=== PATIENT | male | born 1965 | race Caucasian/White ===

== ENCOUNTER 2021-03-03 02:59 | Emergency (ER) | payer OTHER ==
[2021-03-03 03:04] VITALS: BP 117/70
[2021-03-03] MEDS ORDERED: ACETAMINOPHEN 325 MG TAB PO ONE (09:10)
== END 2021-03-03 09:42 | disposition home or self-care (01) ==
LOC: M ED 02:59
DX: S02.2XXA Fracture of nasal bones, initial encounter for closed fracture (principal); S00.83XA Contusion of other part of head, initial encounter; W22.8XXA Striking against or struck by other objects, initial encounter; Y92.89 Other specified places as the place of occurrence of the external cause; Z59.00 Homelessness unspecified; F17.210 Nicotine dependence, cigarettes, uncomplicated

== ENCOUNTER 2021-10-20 19:59 | Emergency (ER) | payer BC, MEDICAID, OTHER ==
[~2021-10-20] VITALS: Ht 179.1 cm; Wt 76.9 kg
[2021-10-21 07:39] VITALS: BP 136/82
[2021-10-21] MEDS ORDERED: AMOX875T PO (07:39)
== END 2021-10-21 07:50 | disposition home or self-care (01) ==
LOC: M ED 19:59
DX: S03.2XXA Dislocation of tooth, initial encounter (principal); W22.8XXA Striking against or struck by other objects, initial encounter; Y92.410 Unspecified street and highway as the place of occurrence of the external cause; F17.200 Nicotine dependence, unspecified, uncomplicated

== ENCOUNTER → 2022-06-27 | Outpatient (CLI) | payer OTHER ==
[~2022-06-27] MED LIST: AMOX875T PO
[2022-06-27 09:48] LABS: BASO # 0.1 10^3/uL (0.0-0.2); BASO % 0.7 % (0.0-1.0); EOS # 0.3 10^3/uL (0.0-0.5); EOS % 2.8 % (0.0-3.0); HEMATOCRIT 43.8 % (42.0-52.0); HEMOGLOBIN 14.6 g/dl (13.5-17.5); LYMPH # 2.7 10^3/uL (1.5-5.0); LYMPH % 24.4 % (24.0-44.0); MEAN CORPUSCULAR HEMOGLOBIN 33.7 pg (27.0-33.0); MEAN CORPUSCULAR HGB CONC 33.3 g/dl (32.0-36.5); MEAN CORPUSCULAR VOLUME 101.2 fl (80.0-96.0); MONO # 1.2 10^3/uL (0.0-0.8); MONO % 10.8 % (2.0-8.0); NEUTROPHILS # 6.8 10^3/uL (1.5-8.5); PLATELET COUNT, AUTOMATED 266 10^3/uL (150-450); RED BLOOD COUNT 4.33 10^6/uL (4.30-6.10); WHITE BLOOD COUNT 11.1 10^3/uL (4.0-10.0)
[2022-06-27 10:20] LABS: ALBUMIN 3.4 G/DL (3.2-5.2); BILIRUBIN,DIRECT 0.1 MG/DL (<0.4); BILIRUBIN,TOTAL 0.5 MG/DL (0.3-1.2); TOTAL PROTEIN 6.9 G/DL (5.7-8.2)
== END ==
LOC: M LAB 09:22
DX: F10.20 Alcohol dependence, uncomplicated (principal)

== ENCOUNTER 2022-08-14 20:16 | Emergency (ER) | payer OTHER ==
[2022-08-14] MEDS ORDERED: LORazepam 2 MG/ML 1ML VIAL IV STA (20:40)
[2022-08-14] MEDS ORDERED: LORazepam 2 MG/ML 1ML VIAL As Ordered ONE (20:42)
[2022-08-14 20:48] LABS: BASO # 0.1 10^3/uL (0.0-0.2); BASO % 0.8 % (0.0-1.0); EOS # 0.2 10^3/uL (0.0-0.5); EOS % 2.1 % (0.0-3.0); HEMATOCRIT 47.3 % (42.0-52.0); HEMOGLOBIN 15.4 g/dl (13.5-17.5); LYMPH # 3.8 10^3/uL (1.5-5.0); MEAN CORPUSCULAR HEMOGLOBIN 33.6 pg (27.0-33.0); MEAN CORPUSCULAR HGB CONC 32.6 g/dl (32.0-36.5); MEAN CORPUSCULAR VOLUME 103.3 fl (80.0-96.0); MONO # 1.1 10^3/uL (0.0-0.8); MONO % 10.2 % (2.0-8.0); NEUTROPHILS # 5.8 10^3/uL (1.5-8.5); NEUTROPHILS % 52.5 % (36.0-66.0); PLATELET COUNT, AUTOMATED 271 10^3/uL (150-450); RED BLOOD COUNT 4.58 10^6/uL (4.30-6.10)
[2022-08-14 21:19] LABS: AMPHETAMINES LEVEL URINE NEGATIVE (NEGATIVE); BARBITURATES URINE NEGATIVE (NEGATIVE); BENZODIAZEPINES URINE NEGATIVE (NEGATIVE); CANNABINOIDS URINE NEGATIVE (NEGATIVE); COCAINE METABOLITE URINE NEGATIVE (NEGATIVE); METHADONE URINE NEGATIVE (NEGATIVE); OPIATES URINE NEGATIVE (NEGATIVE); PHENCYCLIDINE URINE NEGATIVE (NEGATIVE)
[2022-08-14 21:20] LABS: RSV AMPLIFICATION NEGATIVE (NEGATIVE)
[2022-08-14 21:21] LABS: CK-MB VALUE MASS 1.1 NG/ML (<3.6)
[2022-08-14 21:22] LABS: ACETAMINOPHEN LEVEL < 2.0 UG/ML (10.0-20.0)
[2022-08-14 21:23] LABS: CPK CREATINE PHOSPHOKINASE 134 U/L (46-171); MB/CK RELATIVE INDEX 0.82 (< OR =4); SALICYLATE LEVEL < 3.0 MG/DL (<30)
[2022-08-14 21:42] LABS: ALBUMIN 4.3 G/DL (3.2-5.2); ALKALINE PHOSPHATASE 75 U/L (46-116); ALT/SGPT 16 U/L (7.0-40); AST/SGOT 15 U/L (<34); BILIRUBIN,DIRECT < 0.1 MG/DL (<0.4); BILIRUBIN,TOTAL 0.3 MG/DL (0.3-1.2); BLOOD UREA NITROGEN 10 MG/DL (9-23); CARBON DIOXIDE LEVEL 27 MMOL/L (20-31); CHLORIDE LEVEL 113 MMOL/L (98-107); CREATININE FOR GFR 0.61 MG/DL (0.70-1.30); ETHYL ALCOHOL (ETHANOL) 0.433 % (0.000-0.010); GLOMERULAR FILTRATION RATE > 60.0 (>56); GLUCOSE, FASTING 92 MG/DL (60-100); POTASSIUM SERUM 4.4 MMOL/L (3.5-5.1); SODIUM LEVEL 149 MMOL/L (136-145); TOTAL PROTEIN 7.9 G/DL (5.7-8.2)
[2022-08-15 01:30] VITALS: TEMP 98.4
[2022-08-15 05:30] VITALS: BP 128/70; O2SAT 97
== END 2022-08-15 06:43 | disposition home or self-care (01) ==
LOC: M ED 20:16
DX: F10.129 Alcohol abuse with intoxication, unspecified (principal)
CPT/HCPCS: 70450; 71045; 72125; 73560; 80048; 80076; 80143; 80307; 81001; 82077; 82550; 82553; 83605; 85025; 87631; 93005; 93041; 94760; 96374; 99285; J2060

== ENCOUNTER 2022-09-26 12:00 | Emergency (ER) | payer OTHER ==
[~2022-09-26] VITALS: Ht 177.8 cm; Wt 82.4 kg
[2022-09-26] MEDS ORDERED: NEUR300C PO (12:40)
[2022-09-26 13:13] VITALS: TEMP 97.8
[2022-09-26] MEDS ORDERED: NS 1,000 ML IV ONE (16:50)
[2022-09-26] MEDS ORDERED: ISOVUE-370 76% 100ML VIAL As Ordered ONE (17:50)
[2022-09-26 17:54] LABS: BASO # 0.1 10^3/uL (0.0-0.2); BASO % 0.7 % (0.0-1.0); EOS # 0.2 10^3/uL (0.0-0.5); EOS % 2.3 % (0.0-3.0); HEMATOCRIT 43.5 % (42.0-52.0); HEMOGLOBIN 14.5 g/dl (13.5-17.5); LYMPH # 2.6 10^3/uL (1.5-5.0); LYMPH % 34.4 % (24.0-44.0); MEAN CORPUSCULAR HEMOGLOBIN 33.5 pg (27.0-33.0); MEAN CORPUSCULAR HGB CONC 33.3 g/dl (32.0-36.5); MEAN CORPUSCULAR VOLUME 100.5 fl (80.0-96.0); MONO # 0.8 10^3/uL (0.0-0.8); MONO % 10.4 % (2.0-8.0); NEUTROPHILS % 51.9 % (36.0-66.0); PLATELET COUNT, AUTOMATED 230 10^3/uL (150-450); RED BLOOD COUNT 4.33 10^6/uL (4.30-6.10); WHITE BLOOD COUNT 7.7 10^3/uL (4.0-10.0)
[2022-09-26 18:03] LABS: ETHYL ALCOHOL (ETHANOL) 0.148 % (0.000-0.010)
[2022-09-26 18:05] LABS: ALBUMIN 3.8 G/DL (3.2-5.2); BILIRUBIN,DIRECT 0.2 MG/DL (<0.4); BILIRUBIN,TOTAL 0.5 MG/DL (0.3-1.2); TOTAL PROTEIN 7.1 G/DL (5.7-8.2)
[2022-09-26 18:18] LABS: INR 0.9; PARTIAL THROMBOPLASTIN TIME 30.8 SECONDS (24.8-34.2); PROTHROMBIN TIME 12.3 SECONDS (12.5-14.5)
[2022-09-26] MEDS ORDERED: LIDOCAINE 5% (LIDODERM) PATCH TD ONE (19:05)
[2022-09-26 19:29] LABS: AMPHETAMINES LEVEL URINE NEGATIVE (NEGATIVE); BARBITURATES URINE NEGATIVE (NEGATIVE); BENZODIAZEPINES URINE NEGATIVE (NEGATIVE); COCAINE METABOLITE URINE NEGATIVE (NEGATIVE); METHADONE URINE NEGATIVE (NEGATIVE); OPIATES URINE NEGATIVE (NEGATIVE); PHENCYCLIDINE URINE NEGATIVE (NEGATIVE)
[2022-09-26] MEDS ORDERED: LIDO5DIS41 TD (19:29)
[2022-09-26 19:31] LABS: CANNABINOIDS URINE POSITIVE (NEGATIVE)
[2022-09-26 19:51] VITALS: BP 141/85; O2SAT 100
== END 2022-09-26 19:53 | disposition home or self-care (01) ==
LOC: M ED 12:00 → EDBD 12:00 → M ED 19:53
DX: M48.061 Spinal stenosis, lumbar region without neurogenic claudication (principal); F17.210 Nicotine dependence, cigarettes, uncomplicated; Z79.899 Other long term (current) drug therapy
CPT/HCPCS: 36415; 74177; 80047; 80076; 80307; 81001; 82077; 82550; 83605; 83690; 85025; 85610; 85730; 99284; Q9967

== ENCOUNTER 2022-10-07 18:05 | Emergency (ER) | payer OTHER ==
[~2022-10-07 18:05] MED LIST changes: +LIDO5DIS41 TD; +NEUR300C PO
[2022-10-07 19:06] LABS: HEMATOCRIT 48.2 % (42.0-52.0); MEAN CORPUSCULAR HEMOGLOBIN 32.9 pg (27.0-33.0); MEAN CORPUSCULAR HGB CONC 33.2 g/dl (32.0-36.5); MEAN CORPUSCULAR VOLUME 99.2 fl (80.0-96.0); PLATELET COUNT, AUTOMATED 257 10^3/uL (150-450); RED BLOOD COUNT 4.86 10^6/uL (4.30-6.10); WHITE BLOOD COUNT 9.4 10^3/uL (4.0-10.0)
[2022-10-07 19:28] LABS: AMPHETAMINES LEVEL URINE NEGATIVE (NEGATIVE); BARBITURATES URINE NEGATIVE (NEGATIVE); BENZODIAZEPINES URINE NEGATIVE (NEGATIVE); COCAINE METABOLITE URINE NEGATIVE (NEGATIVE); METHADONE URINE NEGATIVE (NEGATIVE); OPIATES URINE NEGATIVE (NEGATIVE); PHENCYCLIDINE URINE NEGATIVE (NEGATIVE)
[2022-10-07 19:30] LABS: CANNABINOIDS URINE POSITIVE (NEGATIVE)
[2022-10-07 19:31] LABS: ETHYL ALCOHOL (ETHANOL) 0.256 % (0.000-0.010)
[2022-10-07 19:32] LABS: ACETAMINOPHEN LEVEL < 2.0 UG/ML (10.0-20.0)
[2022-10-07 19:33] LABS: ALKALINE PHOSPHATASE 68 U/L (46-116); ALT/SGPT 12 U/L (7.0-40); AST/SGOT < 8 U/L (<34); BILIRUBIN,DIRECT 0.1 MG/DL (<0.4); BILIRUBIN,TOTAL 0.3 MG/DL (0.3-1.2); BLOOD UREA NITROGEN 10 MG/DL (9-23); CALCIUM LEVEL 9.2 MG/DL (8.5-10.1); CARBON DIOXIDE LEVEL 23 MMOL/L (20-31); CHLORIDE LEVEL 109 MMOL/L (98-107); CREATININE FOR GFR 0.52 MG/DL (0.70-1.30); GLOMERULAR FILTRATION RATE > 60.0 (>56); GLUCOSE, FASTING 97 MG/DL (60-100); POTASSIUM SERUM 3.9 MMOL/L (3.5-5.1); SALICYLATE LEVEL < 3.0 MG/DL (<30); SODIUM LEVEL 144 MMOL/L (136-145)
[2022-10-07 19:35] LABS: THYROID STIMULATING HORMONE 1.308 uIU/ML (0.55-4.78)
[2022-10-08 11:40] VITALS: BP 145/89; TEMP 97.2; O2SAT 98
== END 2022-10-08 12:02 | disposition home or self-care (01) ==
LOC: M ED 18:05
DX: F10.129 Alcohol abuse with intoxication, unspecified (principal); H54.40 Blindness, one eye, unspecified eye; Z79.899 Other long term (current) drug therapy

== ENCOUNTER 2022-10-13 17:36 | Emergency (ER) | payer OTHER ==
[~2022-10-13] VITALS: Ht 177.8 cm; Wt 83.2 kg
[2022-10-13 18:29] LABS: HEMOGLOBIN 15.6 g/dl (13.5-17.5); MEAN CORPUSCULAR HEMOGLOBIN 32.7 pg (27.0-33.0); MEAN CORPUSCULAR HGB CONC 33.2 g/dl (32.0-36.5); MEAN CORPUSCULAR VOLUME 98.5 fl (80.0-96.0); PLATELET COUNT, AUTOMATED 271 10^3/uL (150-450); RED BLOOD COUNT 4.77 10^6/uL (4.30-6.10); WHITE BLOOD COUNT 9.1 10^3/uL (4.0-10.0)
[2022-10-13 19:03] LABS: ETHYL ALCOHOL (ETHANOL) 0.199 % (0.000-0.010)
[2022-10-13 19:05] LABS: ACETAMINOPHEN LEVEL < 2.0 UG/ML (10.0-20.0); ALBUMIN 4.1 G/DL (3.2-5.2); ALKALINE PHOSPHATASE 82 U/L (46-116); ALT/SGPT 14 U/L (7.0-40); AST/SGOT 14 U/L (<34); BILIRUBIN,DIRECT 0.2 MG/DL (<0.4); BILIRUBIN,TOTAL 0.5 MG/DL (0.3-1.2); BLOOD UREA NITROGEN 9 MG/DL (9-23); CALCIUM LEVEL 9.1 MG/DL (8.5-10.1); CARBON DIOXIDE LEVEL 24 MMOL/L (20-31); CHLORIDE LEVEL 108 MMOL/L (98-107); CREATININE FOR GFR 0.62 MG/DL (0.70-1.30); GLOMERULAR FILTRATION RATE > 60.0 (>56); GLUCOSE, FASTING 152 MG/DL (60-100); POTASSIUM SERUM 3.6 MMOL/L (3.5-5.1); SALICYLATE LEVEL < 3.0 MG/DL (<30); SODIUM LEVEL 144 MMOL/L (136-145); TOTAL PROTEIN 7.9 G/DL (5.7-8.2)
[2022-10-13 19:07] LABS: THYROID STIMULATING HORMONE 0.414 uIU/ML (0.55-4.78)
[2022-10-13 21:47] LABS: AMPHETAMINES LEVEL URINE NEGATIVE (NEGATIVE); BARBITURATES URINE NEGATIVE (NEGATIVE); BENZODIAZEPINES URINE NEGATIVE (NEGATIVE); COCAINE METABOLITE URINE NEGATIVE (NEGATIVE); METHADONE URINE NEGATIVE (NEGATIVE)
[2022-10-13 21:48] LABS: OPIATES URINE NEGATIVE (NEGATIVE); PHENCYCLIDINE URINE NEGATIVE (NEGATIVE)
[2022-10-13 21:53] LABS: CANNABINOIDS URINE POSITIVE (NEGATIVE)
[2022-10-13] MEDS ORDERED: HOME MED LIST COMPLETE! XX SCH (22:10)
[2022-10-13] MEDS ORDERED: GABA-282 PO (22:10)
[2022-10-13] MEDS ORDERED: NALT50TA4 PO (22:11)
[2022-10-14] MEDS ORDERED: GABAPENTIN 300 MG CAP PO SCH (09:00)
[2022-10-14 13:53] VITALS: BP 144/77; TEMP 97.9; O2SAT 99
== END 2022-10-14 13:55 ==
LOC: M ED 17:36
DX: F10.129 Alcohol abuse with intoxication, unspecified (principal); F32.A Depression, unspecified; M54.9 Dorsalgia, unspecified; M25.559 Pain in unspecified hip

== ENCOUNTER 2023-02-12 08:28 | Emergency (ER) | payer OTHER ==
[~2023-02-12] VITALS: Ht 177.8 cm; Wt 97.8 kg
[~2023-02-12 08:28] MED LIST changes: +GABA-282 PO; +NALT50TA4 PO
[2023-02-12] MEDS ORDERED: IBUP200C29 PO (08:39)
[2023-02-12 09:45] LABS: BASO # 0.1 10^3/uL (0.0-0.2); BASO % 0.4 % (0.0-1.0); EOS # 0.3 10^3/uL (0.0-0.5); HEMATOCRIT 42.9 % (42.0-52.0); LYMPH # 2.1 10^3/uL (1.5-5.0); LYMPH % 16.7 % (24.0-44.0); MEAN CORPUSCULAR HEMOGLOBIN 30.5 pg (27.0-33.0); MEAN CORPUSCULAR HGB CONC 32.6 g/dl (32.0-36.5); MEAN CORPUSCULAR VOLUME 93.5 fl (80.0-96.0); MONO # 1.4 10^3/uL (0.0-0.8); MONO % 10.7 % (2.0-8.0); NEUTROPHILS # 8.9 10^3/uL (1.5-8.5); NEUTROPHILS % 69.8 % (36.0-66.0); PLATELET COUNT, AUTOMATED 291 10^3/uL (150-450); RED BLOOD COUNT 4.59 10^6/uL (4.30-6.10); WHITE BLOOD COUNT 12.7 10^3/uL (4.0-10.0)
[2023-02-12 09:58] LABS: ERYTHROCYTE SEDIMENTATION RATE 79 mm/hr (0-20)
[2023-02-12] MEDS ORDERED: LIDOCAINE W/EPINEPHRINE 1% 20ML VIAL INFIL ONE (12:25)
[2023-02-12] MEDS ORDERED: KETOROLAC 60MG 2ML VIAL IM ONE (14:20)
[2023-02-12] MEDS ORDERED: INDO50CA91 PO (20:36)
[2023-02-12 20:46] VITALS: BP 154/77; TEMP 98.8; O2SAT 98
[2023-02-12 20:52] LABS: SOURCE, BODY FLUID RT KNEE
[2023-02-12 20:53] LABS: CRYSTALS, BODY FLUID NONE SEEN (NONE SEEN); SOURCE, BODY FLUID CRYSTALS RT KNEE; SYNOVIAL FLUID COLOR PALE YELLOW (COLORLESS)
== END 2023-02-12 20:47 | disposition home or self-care (01) ==
LOC: M ED 08:28
DX: M17.11 Unilateral primary osteoarthritis, right knee (principal); F17.200 Nicotine dependence, unspecified, uncomplicated; Z79.899 Other long term (current) drug therapy
CPT/HCPCS: 20610; 73564; 80047; 85025; 85652; 86140; 87070; 87075; 87077; 89060; 96372; 99283; J1885

== ENCOUNTER 2023-02-21 03:35 | Emergency (ER) | payer OTHER ==
[2023-02-21 03:35] VITALS: BP 150/81; TEMP 97.3; O2SAT 100
[~2023-02-21 03:35] MED LIST changes: +IBUP200C29 PO; +INDO50CA91 PO
[2023-02-21] MEDS ORDERED: IBUPROFEN 600MG TAB PO ONE (06:20)
== END 2023-02-21 11:26 | disposition home or self-care (01) ==
LOC: M ED 03:35
DX: S62.612A Displaced fracture of proximal phalanx of right middle finger, initial encounter for closed fracture (principal); X58.XXXA Exposure to other specified factors, initial encounter; Y92.89 Other specified places as the place of occurrence of the external cause; Y93.89 Activity, other specified; Y99.8 Other external cause status; M10.9 Gout, unspecified; F17.200 Nicotine dependence, unspecified, uncomplicated

== ENCOUNTER 2023-08-02 15:04 | Emergency (ER) | payer OTHER, SELFPAY ==
[~2023-08-02] VITALS: Ht 177.8 cm; Wt 87.7 kg
[2023-08-02 15:05] VITALS: BP 157/87; TEMP 97.1; O2SAT 96
[2023-08-02] MEDS ORDERED: TRAZ1TAB14 (15:40)
[2023-08-02] MEDS ORDERED: GUAN2TAB (15:40)
[2023-08-02] MEDS ORDERED: BUPR1TAB56 (15:40)
[2023-08-02] MEDS ORDERED: NALT50TA4 (15:40)
[2023-08-02] MEDS ORDERED: LEXA1TAB PO (15:40)
== END 2023-08-02 19:29 | disposition home or self-care (01) ==
LOC: M ED 15:04
DX: M19.012 Primary osteoarthritis, left shoulder (principal); S46.002A Unspecified injury of muscle(s) and tendon(s) of the rotator cuff of left shoulder, initial encounter; X50.0XXA Overexertion from strenuous movement or load, initial encounter; Y92.9 Unspecified place or not applicable; Y93.89 Activity, other specified; Y99.0 Civilian activity done for income or pay; F17.200 Nicotine dependence, unspecified, uncomplicated; Z79.899 Other long term (current) drug therapy

== ENCOUNTER 2024-10-02 12:21 | Emergency (ER) | payer OTHER ==
[~2024-10-02] VITALS: Ht 180.3 cm; Wt 69.0 kg
[~2024-10-02 12:21] MED LIST changes: +BUPR200T45; +GABA-1172 PO; -GABA-282 PO; +GUAN2TAB; +LEXA1TAB PO; +LIDO1ADH93 TD; -LIDO5DIS41 TD; +NALT50TA4; +TRAZ1TAB14
[2024-10-02] MEDS: LIDOCAINE W/EPINEPHrine 1% 20 ML VIAL SC ONE (13:30)
[2024-10-02 14:29] VITALS: BP 95/54; TEMP 97.6; O2SAT 99
[2024-10-02] MEDS ORDERED: AMOX875T2 PO (14:42)
[2024-10-02] MEDS: TETANUS/DIPHTH/ACEL. PERTUSSIS 0.5 ML SYR IM.IMMUN ONE (14:53)
[2024-10-02] MEDS: AUGMENTIN 875 MG TAB PO ONE (14:53)
== END 2024-10-02 15:01 | disposition home or self-care (01) ==
LOC: M ED 12:21
DX: S01.312A Laceration without foreign body of left ear, initial encounter (principal); Y92.019 Unspecified place in single-family (private) house as the place of occurrence of the external cause; Y93.9 Activity, unspecified; Y99.9 Unspecified external cause status; W06.XXXA Fall from bed, initial encounter; I10 Essential (primary) hypertension; F17.210 Nicotine dependence, cigarettes, uncomplicated; F12.10 Cannabis abuse, uncomplicated; Z79.1 Long term (current) use of non-steroidal anti-inflammatories (NSAID); Z79.2 Long term (current) use of antibiotics; Z79.899 Other long term (current) drug therapy; Z23 Encounter for immunization